=== PATIENT | female | born 1970 | race Asian ===

== ENCOUNTER → 2016-05-09 | Outpatient (CLI) | payer OTHER ==
[~2016-05-09] MED LIST: ALBU18HF INHALATION; ALBU2.5V3 NEB; ALPR0.5T PO; ATOR10TA65 PO; CARI350T29 PO; DICL100G37 TOP; FLUO20CA22 PO; FLUT1AER INHALATION; FOLI-49 PO; GLIM2TAB PO; HYDR-3011 PO; HYDR-902 PO; MET25 PO; NYST15OI TOP; ONDA8TAB14 PO; PANT20TA3 PO; PHEN-549 PO; PHEN37.53 PO; RIZA10TA4 PO; TRAZ100T15 PO; VALA500T PO
--- NOTE | 2016-05-09 16:28 | RADRPT ---
PROCEDURE: US Lower extremity Venous. CLINICAL INDICATION: Bilateral lower extremity swelling , pain TECHNIQUE: Multiple sonographic images of the bilateral lower extremity deep venous system was obt ained utilizing grayscale, color-flow, compressive sonography and doppler imaging with augmentation. The images were reviewed on a PACS workstation. COMPARISON: None. FINDINGS: There is normal compressibility and flow within the bilateral common femoral, superficial femoral , posterior tibial and popliteal veins. . Limited sonographic images of the left calf are unremarkable. RPTAT: AA IMPRESSION: No sonographic evidence for deep venous thrombosis. .Silas Eaton MD, MD Date Time Electronically viewed and signed by .Silas Eaton MD, on 05/09/2016 16:28 .S/
== END | disposition home or self-care (01) ==
LOC: RAD 15:40
PROVIDERS: ATTEND Specialist
DX: R22.43 Localized swelling, mass and lump, lower limb, bilateral (principal)
CPT/HCPCS: 93970

== ENCOUNTER 2017-07-12 10:53 | Day surgery (SDC) | END 2017-07-12 14:32 | disposition home or self-care (01) ==